=== PATIENT | female | born 1985 | race American Indian/Alaskan Native ===

== ENCOUNTER 2021-11-08 15:26 | Emergency (ER) | payer BC ==
[2021-11-08] MEDS ORDERED: Sodium Chloride 0.9% 1,000 ML IV ONE ×2 (15:49→16:49)
[2021-11-08] MEDS ORDERED: Ondansetron 4 MG/2 ML SDV IVPUSH ONE (15:49)
[2021-11-08] MEDS ORDERED: Insulin Regular, Human 100 Units/ML 10 ML Vial SUBCUT ONE ×2 (15:50→17:07)
[2021-11-08] MEDS ORDERED: Glucagon,Human Recombinant 1 MG Vial IM PRN ×3 (15:50→17:07)
[2021-11-08] MEDS ORDERED: 50% Dextrose in Water 50 ML Syringe IVPUSH PRN ×3 (15:50→17:07)
[2021-11-08] MEDS ORDERED: Insulin Detemir 100 Units/ML 3 ML Pen SUBCUT ONE (15:51)
[2021-11-08] MEDS ORDERED: Insulin Aspart 100 Units/ML 3 ML Pen SUBCUT STA (15:53)
[2021-11-08 16:46] LABS: CARBON DIOXIDE,CO2 13.1 mmol/L (21.0-32.0)
[2021-11-08 18:34] LABS: BLOOD UREA NITROGEN,BUN 14 mg/dL (7.0-18.0); CARBON DIOXIDE,CO2 13.1 mmol/L (21.0-32.0); CHLORIDE,CL 103 mmol/L (98-107); GLUCOSE RANDOM 278 mg/dL (74-106); POTASSIUM,K 4.1 mmol/L (3.5-5.1); SODIUM,NA 133 mmol/L (136-145)
== END 2021-11-08 18:54 | disposition left against medical advice (07) ==
LOC: MW.ED 15:26
DX: E11.10 Type 2 diabetes mellitus with ketoacidosis without coma (principal); Z76.0 Encounter for issue of repeat prescription; Z79.4 Long term (current) use of insulin
CPT/HCPCS: 36415; 80053; 81001; 83605; 85025; 93005; 96374; 99285; J1815; J2405; J7030; 93010; 99284